=== PATIENT | female | born 1995 | race Caucasian/White ===

== ENCOUNTER → 2019-01-04 | Emergency (ER) | payer OTHER ==
[~2019-01-04] VITALS: Ht 152.4 cm; Wt 55.3 kg
[~2019-01-04] MED LIST: HUMALOG100 U/ML; VISTARIL50 MG; ZOLOFT100 MG
== END | disposition home or self-care (01) ==
LOC: ER 14:04
DX: K52.9 Noninfective gastroenteritis and colitis, unspecified (principal); E10.9 Type 1 diabetes mellitus without complications

== ENCOUNTER 2022-07-06 04:52 | Emergency (ER) | payer OTHER ==
[~2022-07-06] VITALS: Ht 152.4 cm; Wt 59.0 kg
[2022-07-06] MEDS ORDERED: ZYRTEC10 M3 (05:16)
[2022-07-06] MEDS ORDERED: ADVAIR HFA 115/12 GM (05:16)
== END 2022-07-06 13:22 | disposition home or self-care (01) ==
LOC: ER 04:52
DX: E11.65 Type 2 diabetes mellitus with hyperglycemia (principal); K31.84 Gastroparesis; Z79.4 Long term (current) use of insulin; E27.1 Primary adrenocortical insufficiency; Z88.6 Allergy status to analgesic agent; Z91.018 Allergy to other foods; R11.2 Nausea with vomiting, unspecified; E11.43 Type 2 diabetes mellitus with diabetic autonomic (poly)neuropathy; Z20.822 Contact with and (suspected) exposure to COVID-19

== ENCOUNTER 2022-07-07 12:07 | Inpatient (IN) | payer OTHER ==
[~2022-07-07] VITALS: Ht 177.8 cm; Wt 61.2 kg
[~2022-07-07 12:07] MED LIST changes: +ADVAIR HFA 115/12 GM; +ZYRTEC10 M3
--- NOTE | 2022-07-07 12:19 | NUR ---
SE RECIBE PTE EN AMBULANCIA ALERTA Y ORIENTADA LA CUAL REFIERE TENER VOMITOS Y DOLOR ABDOMINAL.
--- NOTE | 2022-07-07 13:11 | NUR ---
SE LE ORIENTA A PACIENTE SOBRE LAS ORDENES MEDICAS, REFIERE ENTEDER LAS MISMAS. SE CANALIZA Y SE LE COLOCA LOS IVF'S, SE LE MAYELA LAS MUETRAS, SE LE ADMINISTRAN LOS MEDICAMENTOS SUSAN LAS ORDENES MEDICAS.
== END 2022-07-09 15:30 | disposition home or self-care (01) | DRG 638 ==
LOC: ER 12:07 → ICU-2 21:41 → SEC-K 07-08 22:33
PROVIDERS: ADMIT Internal Medicine; ATTEND Internal Medicine
PROC: BW21ZZZ Computerized Tomography (CT Scan) of Abdomen and Pelvis (ICD-10-PCS; principal; 2022-07-07)
DX: E10.10 Type 1 diabetes mellitus with ketoacidosis without coma (principal); N39.0 Urinary tract infection, site not specified; E27.1 Primary adrenocortical insufficiency; E86.0 Dehydration; Z79.4 Long term (current) use of insulin; K52.89 Other specified noninfective gastroenteritis and colitis